=== PATIENT | male | born 1995 | race Caucasian/White ===

== ENCOUNTER 2019-06-02 14:00 | Emergency (ER) | payer MEDICAID, OTHER ==
[2019-06-02 14:57] VITALS: BP 143/79
--- NOTE | 2019-06-02 15:22 | UC ---
Neck Pain HPI - HPI Summary HPI Summary: 24-year-old male presents with 2 day history of posterior left-sided neck pain. No known injury. States it is a constant sharp pain that worsens with movement especially flexion of the neck and radiates down into his upper back. Denies fever, chills, headache, URI symptoms, nausea, vomiting, numbness, tingling, or weakness of the upper extremities. - History of Current Complaint Chief Complaint: UCBackPain Stated Complaint: NECK PAIN Time Seen by Provider: 06/02/19 15:08 Hx Obtained From: Patient Pain Intensity: 3 - Allergies/Home Medications Allergies/Adverse Reactions: Allergies Allergy/AdvReac Type Severity Reaction Status Date / Time No Known Allergies Allergy Verified 06/02/19 14:49 Home Medications: Home Medications Anxiety Med 1 tab DAILY PRN 06/02/19 [History Confirmed 06/02/19] Mirtazapine TAB* [Remeron TAB*] 1 tab BEDTIME 06/02/19 [History Confirmed ] hydrOXYzine HCL TAB* [Atarax 25 MG TAB*] 1 tab BEDTIME 06/02/19 [History Confirmed 06/02/19] PMH/Surg Hx/FS Hx/Imm Hx Previously Healthy: Yes Psychological History: Anxiety - Surgical History Surgical History: None - Family History Known Family History: Positive: Non-Contributory - Social History Occupation: Student Lives: Dormitory/Roommates Alcohol Use: Weekly Alcohol Amount: weekends Substance Use Type: None Smoking Status (MU): Never Smoked Tobacco Type: Smokeless Tobacco Review of Systems All Other Systems Reviewed And Are Negative: Yes Constitutional: Negative: Fever, Chills Skin: Negative: Rash ENT: Negative: Sore Throat, Ear Ache, Nasal Discharge, Sinus Congestion, Sinus Pain/Tenderness Respiratory: Negative: Shortness Of Breath, Cough Cardiovascular: Negative: Palpitations, Chest Pain Gastrointestinal: Negative: Abdominal Pain, Vomiting, Nausea Genitourinary: Positive: Negative Musculoskeletal: Positive: Other: - See HPI Neurological: Negative: Headache Is Patient Immunocompromised?: No Physical Exam - Summary Physical Exam Summary: GENERAL APPEARANCE: Well developed, obese, alert and cooperative, adult male who appears to be in no acute distress. EYES: Conjunctiva clear. No drainage. EARS: External auditory canals and tympanic membranes clear, hearing grossly intact. NOSE: No nasal discharge. THROAT: Pharynx normal. No tonsilar inflammation, swelling, exudate, or lesions. Uvula midline. NECK: Neck supple. Paraspinous soft tissue cervical tenderness with spasm into the left trapezius. No cervical lymphadenopathy. CARDIAC: Normal S1 and S2. No S3, S4 or murmurs. Rhythm is regular. There is no peripheral edema, cyanosis or pallor. Extremities are warm and well perfused. Capillary refill is less than 2 seconds. Peripheral pulses intact. LUNGS: Clear to auscultation without rales, rhonchi, wheezing or diminished breath sounds. ABDOMEN: Positive bowel sounds. Soft, nondistended, nontender. No guarding or rebound. No masses or hepatosplenomegally. MUSKULOSKELETAL: ROM intact to all extremities. No joint erythema or tenderness. Normal muscular development. Normal gait. SKIN: Skin normal color, texture and turgor with no lesions or eruptions. Triage Information Reviewed: Yes Vital Signs: Initial Vital Signs Temp 97.9 F 06/02/19 14:51 Pulse 98 06/02/19 14:51 Resp 16 06/02/19 14:51 BP 143/79 06/02/19 14:51 Pulse Ox 98 06/02/19 14:51 Vital Signs Reviewed: Yes Neck Pain Course/Dx - Course Course Of Treatment: 24-year-old male presents with 2 day history of posterior left-sided neck pain. No known injury. States it is a constant sharp pain that worsens with movement especially flexion of the neck and radiates down into his upper back. Denies fever, chills, headache, URI symptoms, nausea, vomiting, numbness, tingling, or weakness of the upper extremities. Afebrile. Hypertensive otherwise vital signs stable. Patient had a supple neck with paraspinous soft tissue cervical tenderness with spasm into the left trapezius and otherwise unremarkable exam. Discussed with the patient that his symptoms were likely musculoskeletal in origin and recommending symptomatic treatment at this time including [id number] NSAIDs, cyclobenzaprine 10 mg 1 tablet every 8 hours as needed for severe pain or spasm, and heat therapy. He is to return here or follow up with his primary care provider in 3-5 days if his symptoms do not improve. Anticipatory guidance and warning symptoms were reviewed with the patient. Verbalizes understanding and agrees with plan of care. - Differential Dx/Diagnosis Differential Dx/HQI/PQRI: Meningitis, Sprain, Strain, Torticollis Provider Diagnosis: Acute neck pain Discharge ED - Sign-Out/Discharge Documenting (check all that apply): Patient Departure All imaging exams completed and their final reports reviewed: No Studies - Discharge Plan Condition: Stable Disposition: HOME Prescriptions: Cyclobenzaprine HCl 10 mg PO Q8HR PRN #15 tablet PRN Reason: Spasms - Neck Patient Education Materials: Neck Pain (ED) Forms: *Work Release Referrals: Lita Pastor MD [Primary Care Provider] - 3 Days Additional Instructions: Your neck pain appears to be of musculoskeletal origin. Take ibuprofen 600 mg every 8 hours as needed for pain. Take cyclobenzaprine (Flexeril) 10 mg 1 tablet every 8 hours as needed for severe pain or spasm. This medication will cause drowsiness so do not take and drive or operate machinery. Apply a heating pad to the back of your neck for 15-20 minutes 3-4 times a day to help with the pain and to relax the muscles. Follow-up with your primary care provider in 3-5 days if symptoms are not improving. Seek immediate medical attention in the emergency room if you develop a fever greater than 100.5 F, have a severe headache, develop nausea and vomiting, having numbness, tingling, or weakness in your arms or hands, or have any worsening of symptoms. - Billing Disposition and Condition Condition: STABLE Disposition: Home
== END 2019-06-02 15:42 | disposition home or self-care (01) ==
LOC: UCCORT 14:00
DX: M54.2 Cervicalgia (principal); F41.9 Anxiety disorder, unspecified
CPT/HCPCS: 99202; G0463